=== PATIENT | male | born 1950 ===

== ENCOUNTER → 2016-12-07 21:07 | Outpatient (CLI) | payer MEDICARE ==
[2016-12-07 22:13] LABS: % SATURATION 11 % (15-55); IRON 39 ug/dl (35-150); TOTAL IRON BIND CAPACITY 334 ug/dl (260-445); UNSAT IRON BIND CAPACITY 295 ug/dl (150-375)
== END | disposition home or self-care (01) ==
LOC: D.LABREF 21:07
PROVIDERS: Family Medicine
DX: D64.9 Anemia, unspecified (principal)